=== PATIENT | male | born 1970 | race Caucasian/White ===

== ENCOUNTER 2016-06-16 12:17 | Emergency (ER) | payer MEDICAID ==
[2016-06-16 13:42] LABS: Hematocrit 45 % (42-52); Hemoglobin 15.1 g/dl (14.0-18.0); Mean Corpuscular HGB Conc 34 g/dl (31-36); Mean Corpuscular Hemoglobin 31 pg (27-31); Mean Corpuscular Volume 91 fL (80-94); Mean Platelet Volume 8 um3 (7.4-10.4); Red Blood Count 4.95 10^6/ul (4.0-5.4); Red Cell Distribution Width 15 % (10.5-15); White Blood Count 10.7 10^3/ul (3.5-10.8)
[2016-06-16 14:07] LABS: ALT 15 U/L (7-52); AST 17 U/L (13-39); Albumin 3.9 g/dL (3.2-5.2); Alkaline Phosphatase 77 U/L (34-104); Anion Gap 3 mmol/L (2-11); Blood Urea Nitrogen 9 mg/dL (6-24); CO2 Carbon Dioxide 30 mmol/L (22-32); Calcium 9.3 mg/dL (8.6-10.3); Chloride 104 mmol/L (101-111); EGFR African American 117.9 (>60); EGFR Non-African American 91.7 (>60); Globulin 2.9 g/dL (2-4); Glucose 100 mg/dL (70-100); Potassium 4.2 mmol/L (3.5-5.0); Sodium 137 mmol/L (133-145); Total Protein 6.8 g/dL (6.4-8.9)
[2016-06-16 14:16] LABS: Acetaminophen < 15 mcg/mL; Alcohol < 10 mg/dL (<10); Salicylate < 2.50 mg/dL (<30)
[2016-06-16 14:27] LABS: TSH (Thyroid Stimulating Horm) 1.31 mcIU/mL (0.34-5.60)
[2016-06-16 14:28] LABS: Urine Bacteria Absent (Absent); Urine Bilirubin Negative (Negative); Urine Glucose Negative (Negative); Urine Nitrite Negative (Negative)
[2016-06-16] MEDS: Acetaminophen TAB* 325 MG PO ONE ×2 (14:31→14:32)
[2016-06-16 14:38] LABS: Benzodiazepine Urine Screen None Detected (None Detect)
[2016-06-16] MEDS ORDERED: traMADol TAB* 50 MG PO ONE (18:19)
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
[2016-06-17] MEDS ORDERED: Zolpidem TAB* 5 MG PO PRN (08:55)
[2016-06-17] MEDS ORDERED: Sertraline* 100 MG TAB PO SCH (09:00)
[2016-06-17] MEDS ORDERED: busPIRone TAB* 5 MG PO SCH (09:00)
[2016-06-17 11:03] VITALS: BP 126/78
--- NOTE | 2016-08-23 18:07 | ED ---
Progress - Progress Note Progress Note: STABLE DISCHARGE HOME AFTER [facility] - Consult/PCP Time Called: 17:36 Course/Dx - Course Course Of Treatment: Pt is medically cleared for MHU Evaluation at 1422. - Diagnoses Provider Diagnoses: Depression
== END 2016-06-17 11:27 | disposition home or self-care (01) ==
LOC: ED 12:17
DX: F32.9 Major depressive disorder, single episode, unspecified (principal); T14.91 Suicide attempt; Z87.891 Personal history of nicotine dependence; M25.562 Pain in left knee
CPT/HCPCS: 36415; 80053; 80307; 80320; 80329; 81003; 81015; 84443; 85025; 87086; 99282; A9270-GY; G0480

== ENCOUNTER 2016-08-03 01:02 | Inpatient (IN) | payer MEDICAID ==
[2016-08-03] MEDS ORDERED: Morphine INJ* 4 MG/ML 1 ML SYRINGE IV ONE (01:13)
[2016-08-03] MEDS ORDERED: Morphine INJ* 4 MG/ML 1 ML SYRINGE ONE (01:13)
[2016-08-03 01:16] LABS: Hematocrit 48 % (42-52); Hemoglobin 15.9 g/dl (14.0-18.0); Mean Corpuscular HGB Conc 33 g/dl (31-36); Mean Corpuscular Hemoglobin 30 pg (27-31); Mean Corpuscular Volume 90 fL (80-94); Mean Platelet Volume 8 um3 (7.4-10.4); Red Blood Count 5.33 10^6/ul (4.0-5.4); Red Cell Distribution Width 14 % (10.5-15); White Blood Count 11.7 10^3/ul (3.5-10.8)
[2016-08-03] MEDS ORDERED: Ticagrelor* 90 MG TAB PO ONE (01:17)
[2016-08-03] MEDS ORDERED: Heparin for STEMI(*) 5,000 UNITS/ML 1 ML VIAL IV ONE (01:17)
[2016-08-03 01:18] LABS: Add Diff/Slide Review? Slide Review Added; Comments Flag Yes
[2016-08-03] MEDS ORDERED: fentaNYL* 50 MCG/ML 2 ML VIAL (100 MCG VIAL) ONE (01:18)
[2016-08-03] MEDS ORDERED: Midazolam* 1 MG/ML 5 ML VIAL (5 MG) ONE (01:18)
[2016-08-03] MEDS ORDERED: nitroGLYCERIN DRIP* 250 ML ONE (01:19)
[2016-08-03] MEDS ORDERED: Heparin(*) 1000 UNIT/ML 10 ML VIAL CATH LAB IV ONE (01:19)
[2016-08-03] MEDS ORDERED: Iohexol 350 (CONTRAST) 200 ML MDV IV ONE (01:19)
[2016-08-03] MEDS ORDERED: Heparin 2 UNITS/ML IVPREMIX* 3,000 ML IV ONE (01:19)
[2016-08-03] MEDS ORDERED: VERAPAMIL 2.5 MG/ML 4 ML VIAL ONE (01:19)
[2016-08-03] MEDS ORDERED: Lidocaine 1% INJ* 10 MG/ML 30 ML SDV ONE ×2 (01:19→08:09)
[2016-08-03 01:33] LABS: Albumin 4.4 g/dL (3.2-5.2); BUN/Creatinine Ratio 13.9 (8-20); Calcium 9.6 mg/dL (8.6-10.3); EGFR African American 103.2 (>60); EGFR Non-African American 80.2 (>60); Globulin 3.1 g/dL (2-4); Potassium 3.6 mmol/L (3.5-5.0); Total Bilirubin 0.2 mg/dL (0.2-1.0); Total Protein 7.5 g/dL (6.4-8.9)
[2016-08-03 01:35] LABS: Troponin I 0.01 ng/mL (<0.04)
[2016-08-03] MEDS ORDERED: Iodixanol* (CONTRAST) 320 MG/ML 100 ML SDV ONE (01:44)
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
[2016-08-03] MEDS ORDERED: Nitroglycerin TAB 0.4 MG* 0.4 MG TAB SL PRN (03:27)
[2016-08-03] MEDS ORDERED: NS 0.9% 1000 ML* 1,000 ML IV SCH (03:30)
[2016-08-03] MEDS ORDERED: Morphine INJ* 2 MG/ML 1 ML SYRINGE ONE (04:55)
[2016-08-03 05:26] LABS: Albumin 3.9 g/dL (3.2-5.2); BUN/Creatinine Ratio 15.7 (8-20); Calcium 8.8 mg/dL (8.6-10.3); EGFR African American 129.4 (>60); EGFR Non-African American 100.6 (>60); Globulin 2.8 g/dL (2-4); Potassium 3.7 mmol/L (3.5-5.0); Total Bilirubin 0.3 mg/dL (0.2-1.0); Total Protein 6.7 g/dL (6.4-8.9)
[2016-08-03 05:29] LABS: Troponin I 0.02 ng/mL (<0.04)
--- NOTE | 2016-08-03 07:40 | RAD ---
INDICATION: STEMI. COMPARISON: Comparison is made with a prior chest x-ray study from August 08, 2015. TECHNIQUE: A portable view of the chest was obtained. FINDINGS: The patient appears to be status post coronary artery bypass surgery. The heart is within normal limits in size. Mediastinal and hilar contours appear normal. The lungs are clear. No pleural effusion is seen. IMPRESSION: POSTSURGICAL CHANGES, NO EVIDENCE FOR ACUTE FINDING.
[2016-08-03] MEDS: Clopidogrel TAB* 75 MG PO SCH (09:13)
[2016-08-03] MEDS: Lisinopril TAB* 5 MG PO SCH (09:13)
[2016-08-03] MEDS: Sertraline* 100 MG TAB PO SCH (09:13)
[2016-08-03] MEDS: Metoprolol Succinate XL TAB* 25 MG PO SCH (09:13)
[2016-08-03] MEDS: busPIRone TAB* 5 MG PO SCH ×2 (09:13→21:05)
[2016-08-03 09:30] LABS: Troponin I 0.02 ng/mL (<0.04)
[2016-08-03] MEDS: Morphine INJ* 2 MG/ML 1 ML SYRINGE IV PRN ×2 (12:50→15:14)
--- NOTE | 2016-08-03 15:28 | HP ---
ADMISSION HISTORY AND PHYSICAL: DATE OF ADMISSION: 08/03/16 CHIEF COMPLAINT: The patient with severe chest and left upper shoulder discomfort with EKG interpreted as a STEMI by emergency room physicians and the EMS. HISTORY OF PRESENT ILLNESS: The patient is a pleasant 46-year-old gentleman with a significant prior cardiac history including having had coronary artery disease dating back to 2008 when he was found to have a 50% left main stenosis and occluded mid LAD and an occluded proximal circumflex with collateralization to the distal LAD and luminal irregularities in the right coronary artery. Reportedly, a bare metal stent was placed in the left anterior descending artery. I do not have anymore details about that. In 2009, he apparently underwent another catheterization that demonstrated a widely patent left anterior descending artery stent. There was no comment as to the circumflex disease. He then had a catheterization done at [facility] in [place], [place] on 08/14/12, apparently showing a right dominant system with a 50% distal left main, a normal LAD and 80% proximal circumflex and a 40% mid right lesion. He had an ejection fraction at that time of 45%. He had carried with him a reported history of left ventricular thrombus that apparently dated back to 2010, but they saw again as well in 2012. The patient was transferred to [facility] where he underwent bypass surgery on 09/09/[address] Pablito Bryant. He had an internal mammary artery to the left anterior descending artery, a saphenous vein to the obtuse marginal branch and a saphenous vein graft to the ramus branch. He was on warfarin for a while and then switched over to Xarelto for his clot in his left ventricle. He has also had problems apparently with a TIA in the past here in [place] for which Dr. Quinn saw him and he recommended an initial course of triple therapy with eventual decreasing him back to his Xarelto and clopidogrel and not aspirin. Last night, he apparently got into an extremely heated argument with his girlfriend who gives him his medications. It got to the point where he got so emotionally upset, he started developing chest discomfort. Eventually, they called the paramedics and a reported EKG demonstrated ST segment elevations in the precordial leads and as such, a STEMI alert was called. It should be noted that the patient's heart rate was tachycardic as well. When he presented to the ER, they repeated the EKG and administered 4000 units of heparin and 180 mg of Brilinta prior to my arrival. On my arrival, he was still having significant active chest discomfort and as such, the decision was made to proceed to the cardiovascular laboratory emergently. The risks and benefits were explained including the increased risk of bleeding given the fact that he was on Xarelto. They understood and wished to proceed. The STEMI alert team had already been called and as such, he was taken to the cardiovascular laboratory for further assessment. PAST MEDICAL HISTORY: Also includes retinopathy with him being legally blind, hyperlipidemia, hypertension, history of congestive heart failure, and left ventricular thrombus in the past. PAST SURGICAL HISTORY: Included right eye enucleation with prosthesis, an ORIF of the left lower leg in 2011, a cholecystectomy in 2007, bypass surgery as mentioned in 2014, and tonsillectomy. MEDICATIONS: He is on the Xarelto as mentioned. ALLERGIES: He does not have any dye allergy. FAMILY HISTORY: Included father with CAD in his 40s with a history of pericardial window. Mother has hypertension. He has siblings with no specific heart issues that he is aware of. SOCIAL HISTORY: He is . He has been having his medications distributed via his girlfriend. He is unemployed. He was a former smoker but not currently. He occasionally drinks alcohol and denies illicit drug usage. REVIEW OF SYSTEMS: Pertinent to proceeding emergently to the cardiovascular laboratory. He has no recent history of hematochezia, hematemesis, or hematuria that he is aware of. He has no history of renal insufficiency. PHYSICAL EXAMINATION GENERAL: When I saw him in the emergency room revealed a gentleman in distress , complaining of central chest discomfort radiating somewhat up toward the upper left shoulder area that he thinks may have some variation with inspiration. HEENT: Conjunctivae were pink. Sclerae were clear. Mouth revealed moist mucosa. NECK: Supple. I did not appreciate any increased JVP. Carotid had fair upstroke and volume. I did not appreciate definitive bruits. LUNGS: Clear with no active rales, rhonchi, or wheezes. HEART: Revealed no visible heaves. No palpable heaves or thrills. A regular rate, tachycardic in nature was noted without significant murmur. ABDOMEN: Soft, nontender without organomegaly. EXTREMITIES: Without clubbing, cyanosis, or blanche pitting edema. NEURO: The patient is legally blind. MUSCULOSKELETAL: He moves all extremities appropriate. PSYCHIATRIC: The patient appropriately anxious. LABORATORY DATA: Laboratory results are pending at the time of the patient proceeding to the cardiovascular laboratory. 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 At this point in time with ongoing symptoms, we will proceed with cardiac catheterization to try to define the left anterior descending artery system and the KAY graft. We will adjust management pending the results. As mentioned earlier, the risks and benefits were explained; he and his family understand them and we will proceed further. CC: Anabel Emery NP, [place], [place]* [id number] #: [id number] MTDD
[2016-08-03] MEDS ORDERED: Atorvastatin* 20 MG TAB PO SCH (21:00)
[2016-08-03] MEDS ORDERED: Amitriptyline TAB* 25 MG PO SCH (21:00)
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
[2016-08-04 06:03] LABS: Hematocrit 45 % (42-52); Hemoglobin 14.8 g/dl (14.0-18.0); Mean Corpuscular HGB Conc 33 g/dl (31-36); Mean Corpuscular Hemoglobin 30 pg (27-31); Mean Corpuscular Volume 91 fL (80-94); Mean Platelet Volume 8 um3 (7.4-10.4); Red Blood Count 4.99 10^6/ul (4.0-5.4); Red Cell Distribution Width 14 % (10.5-15); White Blood Count 11.7 10^3/ul (3.5-10.8)
[2016-08-04 06:21] LABS: Albumin 3.7 g/dL (3.2-5.2); BUN/Creatinine Ratio 11.4 (8-20); Calcium 9.1 mg/dL (8.6-10.3); EGFR Non-African American 94.1 (>60); Globulin 2.9 g/dL (2-4); HDL Cholesterol 33.2 mg/dL; Potassium 3.8 mmol/L (3.5-5.0); Total Bilirubin 0.3 mg/dL (0.2-1.0); Total Protein 6.6 g/dL (6.4-8.9)
[2016-08-04] MEDS: Sertraline* 100 MG TAB PO SCH (08:16)
[2016-08-04] MEDS: Clopidogrel TAB* 75 MG PO SCH (08:16)
[2016-08-04] MEDS: busPIRone TAB* 5 MG PO SCH (08:16)
[2016-08-04] MEDS: Metoprolol Succinate XL TAB* 25 MG PO SCH (08:16)
[2016-08-04] MEDS: Lisinopril TAB* 5 MG PO SCH (08:16)
--- NOTE | 2016-08-04 12:39 | ECHO ---
Patient: HOLLIS ONTIVEROS [facility] Rec#: [id number] : 1970 Date: 08/04/2016 Age: 46y Height: 177.8 cm / 70.0 in Weight: 86.18 kg / 189.9 lbs Sex: M BSA: 2.04 Admit Date#: 08/03/2016 Referring: Guido Real MD Reading: Guido Real MD Snowblower Mechanic: Gabby Lu Snowblower Mechanic: Aidee Ryan HERMINIA CC: Isaac Gonzales MD Transthoracic Echocardiogram Findings History: CAD,s/p CABG 2012,HLD,retinopathy,HTN,CHF, LV thrombus,recent STEMI with PCI. Left Ventricle: The left ventricular chamber size is normal. There is a focal wall motion abnormality present.There is akinesis of the apical, most distal anterior wall,and most distal inferior wall. An apical thrmobus is again noted. There is mild to moderately decreased left ventricular systolic function. The visually estimated LVEF is approximately 40 %. There is no consistent Doppler evidence of clinically significant diastolic dysfunction. A thrombus is visualized in the left ventricular apex. Left Atrium: The left atrium is slightly dilated. Right Ventricle: The right ventricular cavity size is normal. The right ventricular global systolic function is mildly to moderately reduced. Right Atrium: The right atrial cavity size is normal. Aortic Valve: The aortic valve is trileaflet. There is no evidence of aortic regurgitation. There is no evidence of aortic stenosis. Mitral Valve: The mitral valve leaflets appear normal. There is a trace of mitral regurgitation. There is no evidence of mitral stenosis. Tricuspid Valve: The tricuspid valve leaflets are normal. There is a physiologic tricuspid regurgitation. Unable to estimate the right ventricular systolic pressure. Pulmonic Valve: The pulmonic valve appears normal. There is no evidence of pulmonic regurgitation. There is no pulmonic stenosis. Pericardium: The pericardium appears normal. Aorta: There is no dilatation of the ascending aorta. There is no dilatation of the aortic arch. There is no dilation of the aortic root. Pulmonary Artery: The main pulmonary artery appears normal. Venous: The inferior vena cava appears normal in size. There is a greater than 50% respiratory change in the inferior vena cava dimension. Conclusions There is mild to moderately decreased left ventricular systolic function. The visually estimated LVEF is approximately 40 %. There is a focal wall motion abnormality present.There is akinesis of the apical, most distal anterior wall,and most distal inferior wall. A thrombus is visualized in the left ventricular apex measuring 1.5x1.4cm . The left atrium is slightly dilated. There is a trace of mitral regurgitation. There is a physiologic tricuspid regurgitation. Compared to report of study from 06/23/2016 the overall LV systolic function appears mildly improved. The thrombus is again noted with minimal change. Measurements Name Value Normal Range RVIDd (AP) 2D 2.5 cm (0.9 - 2.6) RVDdMajor (2D) 2.8 cm (2.2 - 4.4) RAd ISD 4CH 4 cm (3.4 - 4.9) RA (A4C)W 3 cm (2.9 - 4.6) IVSd (2D) 0.8 cm (0.6 - 1) LVPWd (2D) 0.8 cm (0.6 - 1) LVIDd (2D) 5.2 cm (3.6 - 5.4) LVIDs (2D) 4 cm - LV FS (2D) 23 % (25 - 45) Aortic Annulus 1.9 cm (1.4 - 2.6) Ao root diameter (2D) 2.5 cm (2.1 - 3.5) Ascending Ao 2.4 cm (2.1 - 3.4) Aortic arch 2.8 cm (1.8 - 3.4) Descending Ao 0.7 cm - LA dimension (AP) 2D 3.9 cm (2.3 - 3.8) LAd ISD 4CH 5.2 cm (2.9 - 5.3) LA ISD 4CH W 4.2 cm (2.5 - 4.5) Name Value Normal Range LA ESV SP 4CH (A/L) 52 ml - LA ESV SP 2CH (A/L) 46 ml - LA ESV BP (A/L) 52 ml - LA ESV BP (A/L) index 25.41 ml/m2 - LA ESV SP 4CH (MOD) 46 ml - LA ESV SP 2CH (MOD) 45 ml - Name Value Normal Range MV E-wave Vmax 0.9 m/sec - MV deceleration time 134 msec - MV A-wave Vmax 0.6 m/sec - MV E:A ratio 1.35 ratio - LV septal e' Vmax 0.06 m/sec - LV lateral e' Vmax 0.1 m/sec - LV E:e' septal ratio 15 ratio - LV E:e' lateral ratio 9 ratio - Name Value Normal Range AV Vmax 1.1 m/sec - AV VTI 21.5 cm - AV peak gradient 5.14 mmHg - AV mean gradient 2.21 mmHg - LVOT Vmax 0.8 m/sec - LVOT VTI 17.6 cm - LVOT peak gradient 2.41 mmHg - LVOT mean gradient 1.2 mmHg - Name Value Normal Range IVC diameter 1.8 cm - Name Value Normal Range PV Vmax 0.9 m/sec - PV peak gradient 3.12 mmHg -
--- NOTE | 2016-08-04 13:52 | PN ---
Subjective Date of Service: 08/04/16 Interval History: Patient reports no further episodes of CP. He denies any new, acute symptoms. Reports that his anxiety symptoms are well controlled. He plans to live with his mother following discharge from the hospital. Objective Active Medications: Amitriptyline HCl (Elavil Tab*) 25 mg PO BEDTIME [facility] Last Admin: 08/03/16 21:05 Dose: 25 mg Atorvastatin Calcium (Lipitor*) 20 mg PO BEDTIME [facility] Last Admin: 08/03/16 21:05 Dose: 20 mg Buspirone HCl (Buspar Tab*) 5 mg PO BID [facility] Last Admin: 08/04/16 08:16 Dose: 5 mg Clopidogrel Bisulfate (Plavix Tab*) 75 mg PO DAILY [facility] Last Admin: 08/04/16 08:16 Dose: 75 mg Lisinopril (Prinivil Tab*) 2.5 mg PO DAILY [facility] Last Admin: 08/04/16 08:16 Dose: 2.5 mg Metoprolol Succinate (Toprol Xl Tab*) 25 mg PO DAILY [facility] Last Admin: 08/04/16 08:16 Dose: 25 mg Nitroglycerin (Nitroglycerin Tab 0.4 Mg*) 0.4 mg SL Q5M PRN PRN Reason: ANGINA Sertraline HCl (Zoloft*) 100 mg PO DAILY [facility] Last Admin: 08/04/16 08:16 Dose: 100 mg Vital Signs: Temp Pulse Resp BP Pulse Ox 98.1 F 66 15 116/61 97 08/04/16 12:00 08/04/16 13:00 08/04/16 13:00 08/04/16 13:00 08/04/16 13:00 Appearance: Well appearing, in NAD. Sitting in a chair at bedside. Full exam was not completed today Result Diagrams: 08/04/16 05:35 08/04/16 05:35 Additional Lab and Data: . Microbiology and Other Data: Microbiology 08/03/16 03:30 Nasal Screen MRSA (PCR)(LEW) - Final Nasal Mrsa Negative Diagnostic Imaging: Echo - LVEF 40% with apical/inferior wall hypokinesis with ventricular thrombus present, unchanged from prior Assess/Plan/Problems-Billing Assessment: This is a 46 yo gentleman with significant coronary history as well as anxiety and acquired blindness who presented with complaints of severe CP. Interventional cardiology is managing and requested hospitalist consultation. - Patient Problems (1) Chest pain Comment: No evidence of ACS Likely due to severe emotional stress Management per cardiology (2) CAD (coronary artery disease) Comment: No evidence of ACS Cont med management (3) Anxiety Comment: Symptoms appear well controlled with current medications Recommend continuing Buspar and Sertraline (4) Left ventricular thrombus Comment: Appears unchanged on echo Anticoagulated with Xarelto Pending cardiac MRI (5) Ischemic cardiomyopathy Comment: Without acute exacerbation LVEF 40% (6) Blindness Comment: s/p bilateral ocular extraction for infectious reasons Status and Disposition: Discharge per interventional cardiology. Rx provided for MRI pretreatment. Ativan sent to requested pharmacy
[2016-08-04 16:27] VITALS: BP 135/100
--- NOTE | 2016-08-05 00:07 | DS ---
DISCHARGE SUMMARY: DATE OF ADMISSION: 08/03/16 DATE OF DISCHARGE: 08/04/16 FINAL DIAGNOSIS: Atypical chest pain. SECONDARY DIAGNOSES: 1. Coronary artery disease. 2. Ischemic cardiomyopathy with left apical thrombus. 3. Hyperlipidemia. 4. Legally blind. DISCHARGE MEDICATIONS: Include: 1. Amitriptyline 25 mg at bedtime. 2. Atorvastatin 20 mg a day. 3. BuSpar 5 mg twice a day. 4. Clopidogrel 75 mg a day. 5. Lisinopril 2.5 mg a day. 6. Metoprolol succinate 25 mg a day. 7. Sertraline 100 mg p.o. daily. 8. He is to restart his Xarelto that had been held after his cardiac catheterization at 20 mg a day late tonight and go back on it tomorrow at 20 mg a day at 5 p.m., his regular dosing. 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 An abnormal EKG was noted by the emergency room physician and a STEMI alert was called. Because of the patient's history of significant coronary artery disease with a prior history of stents placed in the LAD and the circumflex and subsequent bypass because of distal left main disease (50%) with a KAY graft to a LAD and a vein graft to a trifurcation marginal branch and a vein graft to a low lying small obtuse marginal branch, the patient was taken emergently to the cardiovascular laboratory. In the cardiovascular laboratory, the 2 vein grafts were found to be totally occluded. The KAY graft to the LAD was widely patent. The left main appear to have approximately 50% to 55% obstruction. The circumflex had a trifurcation marginal branch with a widely patent stent and the continuation of the circumflex had diffuse disease proximally with multiple significant stenosis leading to a very small caliber (less than 2 mm) vessel with diffuse disease in its midportion with up to 85% to 90% stenosis. This was a vessel that did not appear to be able to be treated interventionally with any appropriate size stent. Intravascular ultrasound was then performed to the left main and the minimal luminal area was noted to be 5.47 to the distal left main. The percentage stenosis by area came out to be 68%. Of note, despite all of his symptoms for a significant time period, his cardiac enzymes were completely negative with troponin values of 0.01, 0.02 and 0.02. His CPK and MBs were normal as well. He was hospitalized overnight and was up and about walking without significant problems. He was scheduled to get an MRI performed of his heart to look at the apical thrombus as an outpatient at [facility] on 08/05/16. Unfortunately, his paperwork was not filled out in time to have a transportation through Medicaid. [employer] worked on and was able to provide us with a new date for the MRI and will be getting the paperwork and in time so that he will have it done. It will be scheduled on 08/26/16 at 11:30 a.m. at [facility]. I will be reviewing that and await the decision to decide whether or not anticoagulation can be stopped as he has been on anticoagulation for as long as back in 2010. Back in 2014 in January, he was noted to have a potential CVA and at that point, the recommendations were to maintain the anticoagulation and the clopidogrel and even add aspirin for a 90-day time, after which it was converted back to clopidogrel alone. During the course of this hospitalization, he did have a repeat echocardiogram, which showed his EF to be if anything slightly better at approximately 40%. Focal wall motion abnormality was still seen with akinesis of the apical most distal anterior and most distal inferior wall and a thrombus was noted measuring at 1.5 x 1.4 cm which appeared to be perhaps slightly less than the more recent echo. He had no significant valvular disease. PHYSICAL EXAMINATION: On the day of discharge revealed, vital signs: Blood pressure 98/62, temperature 97.9, pulse 72, O2 saturation 98% on room air. Neck was supple with no increased JVP. Carotids had good upstroke and volume without bruits. Mouth moist mucosa. Lungs revealed no accessory muscle usage. There was good excursion. Lungs were clear A and P. Heart revealed no visible heaves, no palpable heaves or thrills. Normal S1 and S2 with no S3, S4 or gallop. No significant systolic or diastolic murmur. Extremities without edema. The right groin area was well healed with no hematoma. Neuro: The patient is legally blind. Musculoskeletal: The patient walks with a fairly normal gait. Psychiatric: The patient with normal affect. LABORATORY DATA: Laboratory results from today revealed sodium 137, potassium 3.8, chloride 102, bicarb 31, BUN and creatinine 10 and 0.8. Hemoglobin and hematocrit of 14.8 and 45. White count 11,700, platelet count 219,000. EKG today revealed sinus rhythm. Heart rate 68. There was nonspecific intraventricular conduction delay seen. Of note, there was still persistent mild ST segment elevation V1 through V3 with biphasic T-wave in V3. T-Wave inversion was seen in the V4 through V6, I and aVL with small Q-waves and I and aVL and preserved R-waves in I, aVL. He will be maintained on his home medications, and will restart xarelto as above. I will see him back in follow up for a wound check on 08/18/2016. The patient will be followed up also after his MRI for further recommendations. CC: Isaac Gonzales MD, [facility] * [id number]/CPS #: [id number] MTDD
--- NOTE | 2016-08-05 01:08 | CATH ---
CARDIAC CATHETERIZATION REPORT: DATE OF PROCEDURE: 08/03/16 REASON FOR PROCEDURE: The patient with severe left chest discomfort with abnormal EKG with history of significant coronary artery disease, assess for the presence of acute coronary syndrome and possible STEMI to the anterior wall. PROCEDURE: Coronary arteriography, vein graft arteriography to trifurcation marginal branch, vein graft arteriography to low lying obtuse marginal branch, KAY graft to LAD, intravascular ultrasound of left anterior descending artery back into left main to assess distal left main stenosis. DESCRIPTION OF PROCEDURE: The patient was interviewed and examined in the emergency room where the risks and benefits were explained. He understood them and wished to proceed. He was brought to the cardiovascular laboratory where a formal time-out was performed. He was prepped and draped in a sterile fashion. The right groin area was anesthetized with 1% lidocaine. The right femoral artery was cannulated using an anterior wall only approach. A Merit 6.5-Azerbaijani sheath was placed. Coronary arteriography was performed using a 5-Azerbaijani 4- Savage left coronary catheter and a 5-Azerbaijani 4-Savage right coronary catheter. The right coronary artery catheter was utilized to cannulate the 2 vein grafts. A 5-Azerbaijani KAY graft was utilized to cannulate the KAY graft. Following this, the decision was made to assess the distal left main artery by intravascular ultrasound. An ACT was checked and was found to be 208. Additional heparin therapy was given, 2000 units. Guiding views were obtained utilizing a 6-Azerbaijani FL-4 curve guide catheter. An CureSquare All Star guide wire was advanced on the left anterior descending artery and an OptiCross IVUS catheter by [employer] was utilized to image the proximal LAD back into the left main. Following this, the catheters were removed and the sheath was sutured in place after an injection was made into the right femoral artery to assess the eligibility to utilize closure device. This closure device will be deployed in the intensive care unit at the appropriate amount of time to let the heparin wear off as the patient also has had the effect of Xarelto on board which she was on as an outpatient, but had not taken any since the night before last. The total contrast used was 110 cc of Omnipaque dye. The radiation exposure included 9.5 minutes of fluoro time. The air kerma radiation was 625 mGy. The DAPA radiation was 3857 microgray per meter squared. RESULTS: CORONARY ARTERIOGRAPHY: A. Left coronary artery: 1. Left main - the distal left main had what appeared to be a 55-60 % diameter stenosis in its worst view. Several other views, it appeared less significant. 2. Left anterior descending artery - left anterior descending artery had a proximal stent noted with mild in-stent restenosis. The rest of the left anterior descending artery had no significant lesions seen throughout the course of the vessel. It gave a first and second diagonal branch followed by smaller distal diagonal branches. There was no significant disease seen in the diagonal branches. 3. Circumflex artery - a nondominant vessel supplying a high trifurcation marginal branch, which had a stent in place. Just past the point of the stent placement, appeared to be the probable site of attachment of a prior vein graft. There was no retrograde filling into that vein graft. There was slight kinking in that area. The rest of the trifurcation marginal branch had no significant narrowing seen. The continuation of the circumflex in its proximal portion had diffuse disease for a long segment with multiple lesions that appeared to me as much as 85% to possibly 90%. This supplied a small caliber distal obtuse marginal branch, the caliber of which appeared to be less than 2 mm. In the midsegment of this area was a mild area that appeared to be tented upward, probably the site of prior vein graft with no backflow to it with a long diffusely diseased segment on the distal side of it with high-grade stenosis noted. B. Right coronary artery - a dominant vessel supplying an acute marginal branch, a moderate-sized acute mid obtuse marginal branch with supply to the mid inferior wall as well as small caliber posterior descending artery and posterior LV branch which supplied the more proximal inferior wall. There was mild disease seen within the vessel, but no critical stenosis noted. VEIN GRAFT TO TRIFURCATION MARGINAL BRANCH: Totally occluded at its origin. VEIN GRAFT TO LOW-LYING OBTUSE MARGINAL BRANCH: Totally occluded at its proximal portion. KAY GRAFT TO LAD: Widely patent with anastomosis to mid to distal portion of the LAD. There was no significant stenosis seen in the KAY graft and there is competitive flow in the left anterior descending artery. INTRAVASCULAR ULTRASOUND ASSESSMENT OF LEFT MAIN LESION: A. Reference left main size showed a lumen of 17.44 sq. mm. There was mild plaquing in this area of 20% to 25%. B. Most significant area of luminal narrowing in the distal left main revealed an area of 5.46 sq. mm with orthogonal diameters of an oval-shaped area measuring 2.19 mm and 3.09 mm. C. The calculated percent stenosis by area was approximately 70% stenosis by cross-sectional area. The actual cross-sectional area of 5.46 is suggestive of a significant left main lesion being less than 6 sq. mm guideline cutoff for significance of left main area. OVERALL ASSESSMENT: Significant left main lesion by intravascular ultrasound; however, just under the cutoff for minimal luminal area to be declared significant. Angiography suggests a 55% diameter stenosis, which would agree with these findings. The circumflex after a good size trifurcation marginal branch has diffuse disease in its proximal and mid area leading to a thin, low-lying obtuse marginal branch which was of too smaller caliber for proceeding with intervention by these images. Given the fact that there would be difficulty attempting to turn in abrupt 90-degree angle to do intervention into the distal circumflex and provide stenting to this area especially in the face of what appears to be significant left main disease, I would not favor attempting to intervene on the circumflex, but treating with medicine at this point in time. 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 Further management will be made pending the course of the hospitalization. CC: Dr. Isaac Gonzales* [id number]/[facility] #: [id number] [facility] NETWORK[facility]ena
== END 2016-08-04 14:30 | disposition home or self-care (01) | DRG 192 ==
LOC: ED 01:02 → ICU 01:40
PROVIDERS: ADMIT Internal Medicine Cardiovascular Disease; ATTEND Internal Medicine Cardiovascular Disease
PROC: B2111ZZ Fluoroscopy of Multiple Coronary Arteries using Low Osmolar Contrast (ICD-10-PCS; 2016-08-03)
PROC: B2181ZZ Fluoroscopy of Left Internal Mammary Bypass Graft using Low Osmolar Contrast (ICD-10-PCS; 2016-08-03)
PROC: B241ZZ3 Ultrasonography of Multiple Coronary Arteries, Intravascular (ICD-10-PCS; 2016-08-03)
PROC: B2131ZZ Fluoroscopy of Multiple Coronary Artery Bypass Grafts using Low Osmolar Contrast (ICD-10-PCS; principal; 2016-08-03 01:30)
DX: R07.89 Other chest pain (principal); T82.855A Stenosis of coronary artery stent, initial encounter; I11.0 Hypertensive heart disease with heart failure; I50.9 Heart failure, unspecified; I25.810 Atherosclerosis of coronary artery bypass graft(s) without angina pectoris; I25.5 Ischemic cardiomyopathy; H54.8 Legal blindness, as defined in USA; E78.5 Hyperlipidemia, unspecified; I51.3 Intracardiac thrombosis, not elsewhere classified; K21.9 Gastro-esophageal reflux disease without esophagitis; M19.90 Unspecified osteoarthritis, unspecified site; G43.909 Migraine, unspecified, not intractable, without status migrainosus; I25.10 Atherosclerotic heart disease of native coronary artery without angina pectoris; Y71.3 Surgical instruments, materials and cardiovascular devices (including sutures) associated with adverse incidents; F32.9 Major depressive disorder, single episode, unspecified; F41.0 Panic disorder [episodic paroxysmal anxiety]; Z82.49 Family history of ischemic heart disease and other diseases of the circulatory system; Z87.891 Personal history of nicotine dependence; Z79.02 Long term (current) use of antithrombotics/antiplatelets; Z86.73 Personal history of transient ischemic attack (TIA), and cerebral infarction without residual deficits; Z88.8 Allergy status to other drugs, medicaments and biological substances
CPT/HCPCS: 36415; 71010; 80053; 80061; 82550; 82553; 83605; 83721; 83880; 84484; 85025; 85379; 85610; 85730; 87641; 93005; 93306; A9270-GY; C1753; C1760; C1769; C1887; J1644; J2001; J2250; J2270; J3010

== ENCOUNTER 2016-08-05 22:58 | Observation (INO) | payer MEDICAID ==
[2016-08-05] MEDS ORDERED: Ondansetron INJ* 2 MG/ML VIAL IV ONE (23:28)
[2016-08-05] MEDS ORDERED: Morphine INJ* 4 MG/ML 1 ML SYRINGE IV ONE (23:28)
[2016-08-05] MEDS ORDERED: NS 0.9% 1000 ML* 1,000 ML IV SCH (23:30)
[2016-08-06 00:26] LABS: BUN/Creatinine Ratio 14.9 (8-20); C Reactive Protein 15.8 mg/L (< 5.00); Calcium 9.4 mg/dL (8.6-10.3); EGFR African American 122.6 (>60); EGFR Non-African American 95.3 (>60); Globulin 3.2 g/dL (2-4); Potassium 3.9 mmol/L (3.5-5.0); Total Bilirubin 0.3 mg/dL (0.2-1.0); Total Protein 7.2 g/dL (6.4-8.9)
[2016-08-06 00:36] LABS: Hematocrit 46 % (42-52); Hemoglobin 15.2 g/dl (14.0-18.0); Mean Corpuscular HGB Conc 33 g/dl (31-36); Mean Corpuscular Hemoglobin 30 pg (27-31); Mean Corpuscular Volume 91 fL (80-94); Mean Platelet Volume 8 um3 (7.4-10.4); Red Blood Count 5.03 10^6/ul (4.0-5.4); Red Cell Distribution Width 14 % (10.5-15); White Blood Count 14.7 10^3/ul (3.5-10.8)
[2016-08-06] MEDS ORDERED: Morphine INJ* 4 MG/ML 1 ML SYRINGE IV ONE (01:11)
[2016-08-06] MEDS ORDERED: NS 0.9% 1000 ML* 1,000 ML IV SCH (01:30)
[2016-08-06] MEDS ORDERED: ceFAZolin 1 GM in Dextrose (*) 1 GM/50 ML BAG IVPB SCH ×2 (02:00→10:30)
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
[2016-08-06] MEDS ORDERED: LORazepam TAB(*) 1 MG PO ONE (04:00)
[2016-08-06] MEDS ORDERED: Morphine INJ* 2 MG/ML 1 ML SYRINGE ONE ×2 (05:34)
[2016-08-06] MEDS ORDERED: Morphine INJ* 2 MG/ML 1 ML SYRINGE IV ONE (06:00)
[2016-08-06 07:44] LABS: Hematocrit 42 % (42-52); Hemoglobin 14.1 g/dl (14.0-18.0); Mean Corpuscular HGB Conc 34 g/dl (31-36); Mean Corpuscular Hemoglobin 30 pg (27-31); Mean Corpuscular Volume 91 fL (80-94); Mean Platelet Volume 8 um3 (7.4-10.4); Red Blood Count 4.66 10^6/ul (4.0-5.4); Red Cell Distribution Width 14 % (10.5-15); White Blood Count 11.8 10^3/ul (3.5-10.8)
--- NOTE | 2016-08-06 07:44 | RAD ---
INDICATION: Status post cardiac catheterization procedure August 03, 2016 pain at the right femoral access site. COMPARISON: There are no prior studies available for comparison. TECHNIQUE: Multiple real-time, color flow and Doppler tracings of the right inguinal region were obtained. FINDINGS: There is normal triphasic flow within the proximal right common femoral, superficial femoral and profunda femoral arteries. No pseudoaneurysm is seen. No collection or hematoma is noted. IMPRESSION: NO EVIDENCE FOR PSEUDOANEURYSM.
[2016-08-06 08:01] LABS: BUN/Creatinine Ratio 13.8 (8-20); C Reactive Protein 14.34 mg/L (< 5.00); Calcium 8.3 mg/dL (8.6-10.3); EGFR African American 122.6 (>60); EGFR Non-African American 95.3 (>60); Potassium 3.2 mmol/L (3.5-5.0)
[2016-08-06 08:03] VITALS: BP 115/63
[2016-08-06] MEDS ORDERED: oxyCODONE TAB* 5 MG TAB PO PRN (08:03)
[2016-08-06] MEDS ORDERED: oxyCODONE TAB* 5 MG TAB ONE ×2 (08:08)
[2016-08-06] MEDS ORDERED: Clopidogrel TAB* 75 MG PO SCH (09:00)
[2016-08-06] MEDS ORDERED: Metoprolol Succinate XL TAB* 25 MG PO SCH (09:00)
[2016-08-06] MEDS ORDERED: busPIRone TAB* 5 MG PO SCH (09:00)
[2016-08-06] MEDS ORDERED: Sertraline* 100 MG TAB PO SCH (09:00)
[2016-08-06] MEDS ORDERED: Lisinopril TAB* 5 MG PO SCH (09:00)
--- NOTE | 2016-08-06 09:37 | HP ---
HISTORY AND PHYSICAL: DATE OF ADMISSION: 08/06/16 CHIEF COMPLAINT: Right groin pain. HISTORY OF PRESENT ILLNESS: The patient is a 46-year-old gentleman who had a cardiac cath just the day before yesterday, and then this morning he woke up, had significant pain in the area. Said he couldn't walk 4 to 5 steps to go to the bathroom without it being very painful. It started at about 5 p.m. His mother felt it was more swollen than unusual, so took him to the ER. It is now 5/10 in severity, but it was 8-9/10 in severity earlier. It did not feel warm, and was not red. In the ED, the patient was evaluated and the ultrasound showed no evidence of a pseudoaneurysm. PAST MEDICAL HISTORY: The patient has a past medical history significant for retinopathy making him blind, hyperlipidemia, hypertension, congestive heart failure, and coronary artery disease, status post CABG. PAST SURGICAL HISTORY: CABG, cholecystectomy, tonsillectomy, multiple ocular procedures. CURRENT MEDICATIONS: 1. Lorazepam 1 mg daily. 2. Plavix 75 mg daily. 3. Amitriptyline 25 mg at bedtime. 4. BuSpar 5 mg twice daily. 5. Simvastatin 40 mg at bedtime. 6. Zoloft 100 mg daily. 7. Xarelto 20 mg daily. 8. Metoprolol succinate 25 mg daily. 9. Lisinopril 2.5 mg daily. ALLERGIES: Allergy/adverse reaction to WELLBUTRIN. FAMILY HISTORY: Significant for father who had heart disease at age 40. SOCIAL HISTORY: Ex-tobacco, 20-pack year history, rare alcohol, no recreational drug use, unemployed, single. REVIEW OF SYSTEMS: A 14-point review of systems is completed with the patient. All pertinent positives and negatives are in the history of present illness, otherwise it is negative. PHYSICAL EXAMINATION GENERAL: A pleasant gentleman lying in bed, in no acute distress. VITAL SIGNS: Temperature 97.4 degrees, heart rate 76 beats per minute, respiratory rate 18 breaths per minute, pulse ox 100% on room air, blood pressure 132/66. HEENT: Normocephalic and atraumatic. Pupils are equal, round and reactive to light. Moist mucous membranes. NECK: Supple. No JVD, bruits, palpable thyroid or lymphadenopathy. CHEST: Clear to auscultation and percussion bilaterally. CARDIOVASCULAR: S1, S2 appreciated. ABDOMEN: Positive bowel sounds in all 4 quadrants. Soft, nontender, and nondistended. EXTREMITIES: No cyanosis, clubbing, or edema. His groin is not red. It is not swollen. It is tender. It is not warm. NEUROLOGIC: Alert and oriented x3. Moves all extremities. SKIN: No rashes or abnormalities. LABORATORY DATA: White count 14.7, hemoglobin 15.2, hematocrit 46, platelets 235. [id number], potassium 2.9, chloride 101, CO2 27, BUN 15, creatinine 0.87, glucose 87, INR 1.26. Groin Doppler ultrasound shows no evidence of pseudoaneurysm. ASSESSMENT AND PLAN: 1. Right groin pain: Nut Sheller Machine Operator who performed procedure is concerned about possible infection. We will place the patient on Ancef 1 g IV q. 8 hours. Admit under observation. I anticipate the patient will get better quite quickly , and be able to be discharged, perhaps on po antibiotics if necessary. 2. Coronary artery disease. Stable, continue current regimen. 3. FEN. Regular diet. 4. DVT prophylaxis. He is on Xarelto. 5. The patient is a full code. TIME SPENT: Over 75 minutes were spent on this H and P, more than 40 minutes of which were spent in direct [id number] contact with the patient in evaluation, physical exam, counseling, and coordination of care. CC: Dr. Guido Real; Dr. Isaac Gonzales [id number]/[facility] #: [id number] MTDD
--- NOTE | 2016-08-06 12:38 | DS ---
DISCHARGE SUMMARY: DATE OF ADMISSION: 08/06/16 DATE OF DISCHARGE: 08/06/16 PRIMARY CARE PROVIDER: Dr. Gonzales. DOCUMENT REVIEW SPECIALIST: Dr. Real. DISCHARGING PROVIDER: DELMY Reed SUPERVISING PHYSICIAN: Edith Daniel DO. * (DICTATED BY DELMY REED) PRIMARY DISCHARGE DIAGNOSIS: Right groin pain, status post cardiac catheterization without evidence of infection or pseudoaneurysm. SECONDARY DISCHARGE DIAGNOSES: 1. Coronary artery disease without evidence of acte coronary syndrome. 2. Chronic ventricular thrombus anticoagulated with Xarelto. 3. Anxiety. 4. Acquired blindness. 5. Hypertension. 6. Hyperlipidemia. 7. Ischemic cardiomyopathy. DISCHARGE MEDICATIONS: 1. Amitriptyline 25 mg p.o. at bedtime. 2. Plavix 75 mg p.o. daily. 3. Lisinopril 2.5 mg p.o. daily. 4. Metoprolol succinate 25 mg p.o. daily. 5. Xarelto 20 mg p.o. daily. 6. Sertraline 100 mg p.o. daily. 7. Simvastatin 40 mg p.o. at bedtime. 8. BuSpar 5 mg p.o. twice daily. 9. Oxycodone 10 mg p.o. q.6 hours as needed for pain. HOSPITAL IMAGING: Groin Doppler ultrasound is negative for pseudoaneurysm. HOSPITAL COURSE: This is a 46-year-old gentleman with extensive medical history including coronary artery disease, blindness, ischemic cardiomyopathy, hypertension, hyperlipidemia, and anxiety who was recently admitted for complaints of chest pain. There was concern for non-ST elevation MO and the patient underwent cardiac catheterization with access at the right femoral artery by Dr. Real on 08/03/16. The patient was discharged from the hospital on 08/04/16. Cardiac catheterization was benign. The patient engaged in some light activity yesterday. He states that he was following directions per post- catheterization protocol. He walked less than a city block carrying a bag less than 5 pounds and later in the day began having severe right groin pain for which he returned to the emergency department for evaluation. Upon reaching the emergency department, initial labs showed moderate leukocytosis with a white blood cell count of 14,700. Last labs from the day prior showed a white blood cell count of 11,700. Chemistries are otherwise unremarkable. CRP mildly elevated at 15.8. Ultrasound was completed of the right groin, which showed no evidence of pseudoaneurysm. The patient was subsequently admitted to observation status due to the leukocytosis and concern for possible infection at his catheterization access site. Overnight, the patient had some mild to moderate pain which resolved with opioid analgesics. Evaluation of the catheterization site appears to be benign. There is no surrounding erythema, some mild induration and ecchymosis and very minimal tenderness to palpation at the time of discharge. I contacted on-call home restoration service supervisor who did not recommend any additional intervention. DISPOSITION: The patient is being discharged to home without changes to his home medications with the exception of p.r.n. oxycodone for pain relief, with instructions to apply cold packs for additional pain relief. He is instructed to keep his followup appointment with Dr. Real as previously scheduled. No concern for infection or pseudoaneurysm. DELMY REED CC: Dr. Gonzales; Dr. Real* [id number]/[facility] #: [id number] MTDD
[2016-08-06] MEDS ORDERED: Rivaroxaban TAB(*) 20 MG TAB PO SCH (17:00)
[2016-08-06] MEDS ORDERED: Atorvastatin* 20 MG TAB PO SCH (21:00)
[2016-08-06] MEDS ORDERED: Amitriptyline TAB* 25 MG PO SCH (21:00)
== END 2016-08-06 13:10 | disposition home or self-care (01) ==
LOC: ED 22:58 → MED 08-06 03:40
PROVIDERS: ADMIT Internal Medicine; ATTEND Hospitalist
DX: R10.30 Lower abdominal pain, unspecified (principal); Z98.890 Other specified postprocedural states; I25.119 Atherosclerotic heart disease of native coronary artery with unspecified angina pectoris; I10 Essential (primary) hypertension; Z86.718 Personal history of other venous thrombosis and embolism; Z79.01 Long term (current) use of anticoagulants; F41.9 Anxiety disorder, unspecified; E78.5 Hyperlipidemia, unspecified; I42.9 Cardiomyopathy, unspecified; I25.5 Ischemic cardiomyopathy; M79.604 Pain in right leg; Z79.899 Other long term (current) drug therapy; Z87.891 Personal history of nicotine dependence; Z88.8 Allergy status to other drugs, medicaments and biological substances
CPT/HCPCS: 36415; 80048; 80053; 84145; 85025; 85610; 85730; 86140; 87040; 96365; 96375; 96376; 99285; A9270-GY; G0378; J0690; J2270; J2405

== ENCOUNTER 2016-12-04 13:41 | Emergency (ER) | payer MEDICAID ==
[2016-12-04 14:04] VITALS: BP 125/78
[2016-12-04] MEDS ORDERED: HYDROcodone/ACETAMIN 5-325 MG* 1 TAB PO ONE (15:36)
--- NOTE | 2016-12-04 16:08 | RAD ---
Indication: Sharp anterior and medial tibia and fibula pain for one day. Previous surgery and ORIF. Comparison: March 04, 2016 radiographs. Technique: AP and lateral views LEFT lower leg. Report: No evidence for loosening of the medial or lateral cortical plates and fixation screws at the tibial plateau through proximal metaphysis. Stable appearance of the hardware compared with the 2016 exam. No fracture or malalignment. Unremarkable soft tissue contours. Soft tissue planes surgical clips at the proximal medial aspect. IMPRESSION: Stable radiographic appearance of the LEFT lower leg compared with the March 04, 2016 exam.
--- NOTE | 2016-12-04 16:16 | UC ---
Lower Extremity/Ankle HPI - HPI Summary HPI Summary: Left knee pain patient reports this to be above the location of hardware in his leg from a previous accident, no joint swelling fevers, chills or rashes, no new injury - History of Current Complaint Chief Complaint: UCLowerExtremity Stated Complaint: LEG PAIN Time Seen by Provider: 12/04/16 15:22 Hx Obtained From: Patient Onset/Duration: Gradual Onset, Lasting Days, Still Present Severity Initially: Moderate Severity Currently: Moderate Pain Intensity: 9 Pain Scale Used: 0-10 Numeric Aggravating Factor(s): Standing, Ambulation Alleviating Factor(s): Rest Able to Bear Weight: Yes - Allergies/Home Medications Allergies/Adverse Reactions: Allergies Allergy/AdvReac Type Severity Reaction Status Date / Time Bupropion [From Wellbutrin] Allergy Severe seizures Verified 08/23/16 01:28 PMH/Surg Hx/FS Hx/Imm Hx Previously Healthy: No Endocrine History: Dyslipidemia Cardiovascular History: Cardiac Disease, Hypertension, Myocardial Infarction Psychological History: Depression Other History Of: Anticoagulant Therapy - Surgical History Surgical History: Yes Surgery Procedure, Year, and Place: Numerous eye surgeries prior to their removal. Bilat eye surg(PROSTHESIS CLEARED BY DR. HOWARD FOR MRI) 2010 and 2015. Cholecystectomy 2007. Tonsillectomy 1978. LLE plate 2011. CABG 2012 - Family History Known Family History: Positive: Hypertension - Social History Occupation: Disabled Lives: With Family Alcohol Use: Rare Alcohol Amount: 2-3 beers Substance Use Type: Marijuana Substance Use Comment - Amount & Last Used: This week Smoking Status (MU): Light Every Day Tobacco Smoker Type: Cigarettes Amount Used/How Often: smokes occasionally, not every day, smokes 3-4 cigarettes when he smokes. Length of Time of Smoking/Using Tobacco: doesnt know Have You Smoked in the Last Year: Yes Household Exposure Type: Cigarettes - Immunization History Most Recent Influenza Vaccination: March 2016 Most Recent Tetanus Shot: current Most Recent Pneumonia Vaccination: 2017 Review of Systems Constitutional: Negative Skin: Negative Eyes: Negative ENT: Negative Respiratory: Negative Cardiovascular: Negative Gastrointestinal: Negative Genitourinary: Negative Motor: Negative Neurovascular: Negative Musculoskeletal: Arthralgia - left knee anterior Neurological: Negative Psychological: Negative All Other Systems Reviewed And Are Negative: Yes Physical Exam Triage Information Reviewed: Yes Appearance: Well-Appearing, No Pain Distress, Well-Nourished Vital Signs: Initial Vital Signs Temp 99 F 12/04/16 13:51 Pulse 78 12/04/16 13:51 Resp 20 12/04/16 13:51 BP 125/78 12/04/16 13:51 Pulse Ox 100 12/04/16 13:51 Vital Signs Reviewed: Yes Eye Exam: Other Eyes: Positive: Other: - prosthesis ENT Exam: Normal ENT: Positive: Normal ENT inspection, Hearing grossly normal. Negative: Nasal congestion, Nasal drainage, Trismus, Muffled/hoarse voice Dental Exam: Normal Neck exam: Normal Neck: Positive: Supple, Nontender Respiratory Exam: Normal Respiratory: Positive: Chest non-tender, No respiratory distress, No accessory muscle use Cardiovascular Exam: Normal Cardiovascular: Positive: RRR, Pulses Normal, Brisk Capillary Refill Musculoskeletal Exam: Normal Musculoskeletal: Positive: Strength Intact, ROM Intact Neurological Exam: Normal Neurological: Positive: Alert, Muscle Tone Normal Psychological Exam: Normal Skin Exam: Normal Diagnostics - Radiology No standard instances Xray Interpretation: No Acute Changes Radiology Interpretation Completed By: Radiologist Lower Extremity Course/Dx - Course Course Of Treatment: pain control, follow with ortho [facility] for further discussion regarding management of chonic left leg pain including hardware removal - Differential Dx/Diagnosis Differential Diagnosis/HQI/PQRI: Cellulitis, Fracture (Closed), Gout, Infection , Sprain, Strain Provider Diagnoses: Acute on chronic left lower leg pain Discharge - Discharge Plan Condition: Stable Disposition: HOME Prescriptions: HYDROcodone/ACETAMIN 5-325 MG* [[place] 5-325 TAB*] 1 tab PO Q6H PRN #12 tab MDD 4 PRN Reason: Pain Patient Education Materials: Arthralgia (ED), RICE Therapy (ED) Referrals: [facility] [Provider Group] - 3 Days
== END 2016-12-04 16:22 | disposition home or self-care (01) ==
LOC: UCEAST 13:41
DX: M79.662 Pain in left lower leg (principal); G89.29 Other chronic pain; Z72.0 Tobacco use
CPT/HCPCS: 99212; G0463

== ENCOUNTER 2017-01-20 20:23 | Emergency (ER) | payer MEDICAID ==
[2017-01-20 20:32] VITALS: BP 123/84
[2017-01-20] MEDS ORDERED: HYDROcodone/ACETAMIN 5-325 MG* 1 TAB PO ONE (21:02)
--- NOTE | 2017-01-20 21:02 | RAD ---
INDICATION: Knee pain. Remote tibial plateau fracture. COMPARISON: None TECHNIQUE: AP, lateral, tunnel, and sunrise views were obtained. FINDINGS: There is orthopedic fixation of a tibial plateau fracture. No hardware failure is evident. The knee articulates normally. There is no joint effusion. IMPRESSION: POSTOPERATIVE CHANGE. NO ACUTE FINDINGS.
--- NOTE | 2017-01-20 21:15 | UC ---
Knee Pain HPI - HPI Summary HPI Summary: Patient presents with complaints of left knee pain, he states he has plated s/p trauma and he recently fell. He states that after the fall he had increased pain on the lateral aspect. He states the pain is worse if her presses on the area, but remains constant even without touching it. He describes the pain as sharp, stabbing pain. He denies any head or neck injury and no LOC. He states he is going to call his orthopedist for follow up tomorrow. - History of Current Complaint Chief Complaint: UCLowerExtremity Stated Complaint: KNEE INJURY Time Seen by Provider: 01/20/17 20:33 Hx Obtained From: Patient Onset/Duration: Sudden Onset, Lasting Days Severity Initially: Moderate Severity Currently: Severe Character: Sharp Aggravating Factor(s): Movement, Weight Bearing, Prolonged Standing, Stairs Alleviating Factor(s): Rest Associated Signs And Symptoms: Positive: Negative Able to Bear Weight: Yes - Allergies/Home Medications Allergies/Adverse Reactions: Allergies Allergy/AdvReac Type Severity Reaction Status Date / Time Bupropion [From Wellbutrin] Allergy Severe seizures Verified 08/23/16 01:28 PMH/Surg Hx/FS Hx/Imm Hx Previously Healthy: Yes Cardiovascular History: Cardiac Disease, Myocardial Infarction Other History Of: Anticoagulant Therapy - Surgical History Surgical History: Yes Surgery Procedure, Year, and Place: Numerous eye surgeries prior to their removal. Bilat eye surg(PROSTHESIS CLEARED BY DR. HOWARD FOR MRI) 2010 and 2015. Cholecystectomy 2007. Tonsillectomy 1978. LLE plate 2011. CABG 2012 - Family History Known Family History: Positive: Hypertension - Social History Occupation: Disabled Lives: Alone Alcohol Use: Rare Alcohol Amount: 2-3 beers Substance Use Type: Marijuana Substance Use Comment - Amount & Last Used: This week Smoking Status (MU): Light Every Day Tobacco Smoker Type: Cigarettes Amount Used/How Often: smokes occasionally, not every day, smokes 3-4 cigarettes when he smokes. Length of Time of Smoking/Using Tobacco: doesnt know Have You Smoked in the Last Year: Yes Household Exposure Type: Cigarettes - Immunization History Most Recent Influenza Vaccination: March 2016 Most Recent Tetanus Shot: current Most Recent Pneumonia Vaccination: 2017 Review of Systems Musculoskeletal: Other: - left lateral knee pain All Other Systems Reviewed And Are Negative: Yes Physical Exam Triage Information Reviewed: Yes Appearance: Well-Appearing Vital Signs: Initial Vital Signs Temp 97.7 F 01/20/17 20:26 Pulse 102 01/20/17 20:26 Resp 16 01/20/17 20:26 BP 123/84 01/20/17 20:26 Pulse Ox 99 01/20/17 20:26 Vital Signs Reviewed: Yes Eyes: Positive: Other: - blind. ENT Exam: Normal Neck exam: Normal Respiratory Exam: Normal Cardiovascular Exam: Normal Musculoskeletal: Positive: Other: - left knee;inspection no gross deformity noted. healed scars medially and laterally. Palpation;tenderness to palpation of the lateral aspect. no warmth on palpation. rom;intact with flextion to 90 degrees, extension to 0. negative anterior and posterior draw sign. Postiive valus stress test with reproducible pain. vasc;no edema, neruo;no deficits. Skin Exam: Normal Knee Pain Course/Dx - Course Course Of Treatment: Patient presents with acute knee pain following a fall, xrays were read as negative. Patient was placed in a knee immobizier, pain addressed in clinic with sharron. He will follow up with his orthopedists tomorrow for an appointment. He could not utilize crutches due to his blindness and considering the negative xray I feel trying to have his use the crutches is more dangerous that just using the immobilzer. He was given a RX for norco for pain controll. He was neruo-vasc intact and discharged home in stable condition. - Differential Dx/Diagnosis Differential Diagnosis/HQI/PQRI: Other - knee pain Provider Diagnoses: knee pain Discharge - Discharge Plan Condition: Stable Disposition: HOME Prescriptions: Hydrocodone-Acetaminophen [[place] 5-325 mg] 1 tab PO Q4H #14 tab MDD 6 Patient Education Materials: Knee Pain (ED) Referrals: Ryan Lee MD [Medical Doctor] - Isaac Gonzales MD [Primary Care Provider] -
== END 2017-01-20 21:27 | disposition home or self-care (01) ==
LOC: UCEAST 20:23
DX: M25.562 Pain in left knee (principal); I51.9 Heart disease, unspecified; I21.3 ST elevation (STEMI) myocardial infarction of unspecified site; Z79.01 Long term (current) use of anticoagulants; Z90.49 Acquired absence of other specified parts of digestive tract; F12.90 Cannabis use, unspecified, uncomplicated; F17.210 Nicotine dependence, cigarettes, uncomplicated
CPT/HCPCS: 99212; G0463

== ENCOUNTER 2017-01-27 17:45 | Emergency (ER) | payer MEDICAID ==
[2017-01-27 18:12] VITALS: BP 105/69
--- NOTE | 2017-01-27 18:20 | UC ---
Back Pain HPI - HPI Summary HPI Summary: 47 YEAR OLD MALE PRESENTS WITH COMPLAINS OF LEFT LOWER BACK PAIN. - History of Current Complaint Chief Complaint: UCBackPain Stated Complaint: LOWER BACK PAIN Time Seen by Provider: 01/27/17 18:18 Hx Obtained From: Patient Onset/Duration: Sudden Onset Timing: Constant Severity Initially: Moderate Severity Currently: Moderate Character: Sharp Aggravating: Movement, Bending Associated Signs And Symptoms: Positive: Negative - Allergies/Home Medications Allergies/Adverse Reactions: Allergies Allergy/AdvReac Type Severity Reaction Status Date / Time Bupropion [From Wellbutrin] Allergy Severe seizures Verified 01/27/17 18:12 PMH/Surg Hx/FS Hx/Imm Hx Previously Healthy: Yes Other History Of: Anticoagulant Therapy - Surgical History Surgical History: Yes Surgery Procedure, Year, and Place: Numerous eye surgeries prior to their removal. Bilat eye surg(PROSTHESIS CLEARED BY DR. HOWARD FOR MRI) 2010 and 2015. Cholecystectomy 2007. Tonsillectomy 1978. LLE plate 2011. CABG 2012 - Family History Known Family History: Positive: Hypertension - Social History Alcohol Use: Rare Alcohol Amount: 2-3 beers Substance Use Type: Marijuana Substance Use Comment - Amount & Last Used: This week Smoking Status (MU): Light Every Day Tobacco Smoker Type: Cigarettes Amount Used/How Often: smokes occasionally, not every day, smokes 3-4 cigarettes when he smokes. Length of Time of Smoking/Using Tobacco: doesnt know Have You Smoked in the Last Year: Yes Household Exposure Type: Cigarettes - Immunization History Most Recent Influenza Vaccination: March 2016 Most Recent Tetanus Shot: current Most Recent Pneumonia Vaccination: 2017 Review of Systems Constitutional: Negative Skin: Negative Eyes: Negative ENT: Negative Respiratory: Negative Cardiovascular: Negative Gastrointestinal: Negative Genitourinary: Negative Motor: Negative Neurovascular: Negative Musculoskeletal: Other: - LOWER BACK PAIN LEFT SIDE Neurological: Negative Psychological: Negative All Other Systems Reviewed And Are Negative: Yes Physical Exam Triage Information Reviewed: Yes Vital Signs: Initial Vital Signs Temp 36.6 C 01/27/17 18:08 Pulse 68 01/27/17 18:08 Resp 18 01/27/17 18:08 BP 105/69 01/27/17 18:08 Pulse Ox 99 01/27/17 18:08 Eye Exam: Normal ENT Exam: Normal Dental Exam: Normal Neck exam: Normal Neck: Positive: 1 Respiratory Exam: Normal Cardiovascular Exam: Normal Abdominal Exam: Normal Musculoskeletal: Positive: Other: - LOWER BACK PAIN LEFT SIDE Neurological Exam: Normal Psychological Exam: Normal Skin Exam: Normal Back Pain Course/Dx - Differential Dx/Diagnosis Provider Diagnoses: PIRIFORMIS SYNDROME Discharge - Discharge Plan Condition: Stable Disposition: HOME Prescriptions: Methocarbamol TAB* [Robaxin 500 MG TAB*] 500 mg PO TID PRN #30 tab PRN Reason: Spasms - Back Methylprednisolone [Medrol Dosepak 4 MG*] 4 mg PO .SEE CARIDAD INSTRUCTION #21 tab Patient Education Materials: Muscle Spasm (ED), Piriformis Syndrome (ED) Referrals: Isaac Gonzales MD [Primary Care Provider] -
== END 2017-01-27 18:30 | disposition home or self-care (01) ==
LOC: UCEAST 17:45
DX: M62.838 Other muscle spasm (principal); F17.210 Nicotine dependence, cigarettes, uncomplicated
CPT/HCPCS: 99212; G0463

== ENCOUNTER 2017-08-31 07:43 | Day surgery (SDC) | payer MEDICAID ==
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
--- NOTE | 2017-08-29 23:00 | HP ---
HISTORY AND PHYSICAL: DATE OF ADMISSION/SURGERY: 08/31/17 PROVIDER: Dr. Lee* (dictated by DELMY Weiss). HISTORY OF PRESENT ILLNESS: Mr. Gibson is a 47-year-old male. He is blind. He has had intermittent disabling pain from bursitis over the plates in his left knee for several years now. Knee was fractured years ago and was repaired with an open reduction and internal fixation. He would like to have the plates removed from his knee. PAST MEDICAL HISTORY: 1. Heart disease. 2. Hyperlipidemia. 3. 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 4. Chronic ischemic heart disease. 5. Coronary arteriosclerosis. 6. Present with painful hardware. 7. Blindness. PAST SURGICAL HISTORY: 1. Cataracts. 2. Cornea transplant. 3. Removal of eyes. 4. Gallbladder excision. 5. Tonsillectomy. 6. Repair of fracture. 7. Triple bypass open heart surgery in 2010. MEDICATIONS: 1. Metoprolol extended release 50 mg 1 by mouth every day. 2. Xarelto 20 mg 1 p.o. daily. 3. Plavix 75 mg 1 by mouth every day. 4. Sertraline 100 mg 1 by mouth every day. 5. Zolpidem 5 mg 1 by mouth at bedtime as needed. 6. Tramadol 50 mg 1 tablet every 6 hours as needed. 7. Lisinopril 2.5 mg 1 by mouth every day. 8. Buspirone b.i.d. 9. Trazodone 150 mg 1 by mouth at bedtime as needed. 10. Rosuvastatin calcium 20 mg 1 tab daily. 11. Amitriptyline 25 mg 1 tablet by mouth at bedtime. ALLERGIES: WELLBUTRIN causes seizures. SOCIAL HISTORY: The patient is a half-pack a day smoker x30 years. He is a rare drinker. He smokes marijuana 0.5 g about 3 times a week out of the pipe. He denies any other illicit drug use. REVIEW OF SYSTEMS: General: The patient denies any fevers, chills, or night sweats. No known anesthesia problems. HEENT: The patient denies any headaches , lightheadedness, or syncopal episodes. Cardiothoracic: The patient denies any chest pain, heart palpitations, or edema. Pulmonary: The patient denies any shortness of breath with exertion, chronic cough, COPD. GI: The patient denies any nausea, vomiting, diarrhea, or constipation. : The patient denies any nocturia, urinary frequency, urgency, or history of UTI. MSK: The patient admits to pain over the incisions where the plates are. The patient denies any low back pain or fractures. Neuro: The patient admits to CVA in the past. He denies any paresthesias, numbness, or seizures. Integument: The patient denies any abrasions, lesions, rashes, lumps, or open sores. PHYSICAL EXAMINATION GENERAL: The patient is alert and oriented x3 with appropriate mood and affect , appropriate dress and hygiene, non-antalgic gait. Bilateral well-coordinated upper and lower extremities. HEENT: Normocephalic and atraumatic. Hearing grossly intact. PULMONARY: Lungs are clear to auscultation bilaterally with no wheezes, rales, or rhonchi. CARDIO: Regular rate and rhythm. Normal S1 and S2. No appreciable S3 or S4. No murmurs, rubs, or gallops. MSK: Left knee: Left quadriceps atrophy. The left knee is extension of 0 degrees and flexion of 130 degrees. There is some slight tenderness in the medial and lateral joint lines. Slight tenderness posteriorly and he is more tender over the medial and lateral plates on the proximal tibia medially and laterally. There is no redness, fluctuance, or drainage. No knee effusion. MCL/LCL are stable. Juan's and posterior drawer do not add any knee pain. Thigh and calves are soft. He is neurovascularly intact. IMPRESSION: 1. Painful hardware of left knee. 2. Coronary artery disease, myocardial infarction. He has a mural thrombus and cardiac stents present. PLAN: Today, we spoke with Dr. Guido Real regarding his cardiac clearance for surgical care and discussed carefully stopping the Xarelto on 08/27/17 and the next day starting Lovenox to 100 mg subcu b.i.d. on Wednesday, Wednesday and Wednesday. The Lovenox was stopped after the evening dose on Wednesday and we will proceed with surgical care on Wednesday. The patient's Plavix was stopped on and after surgery on Wednesday we will give him Lovenox 100 mg subcu in the evening and then we will be planning to start Xarelto and Plavix on 09/01/17 in the a.m. The surgical decision to proceed with surgical care was made. The risks and complications of surgery were discussed with him today including infection and especially including that he could still has some knee pain and weakness as this has been chronic and has certainly may have to do physical therapy after surgery to strengthen the left knee. We cannot guarantee that the surgical care will end his falling. Regarding walking aids, he has a cane today and we gave him a script for forearm crutches. This can be a help after surgery as well. Surgery is planned for 08/31/17 removal of 2 plates from his proximal tibia on the left side. DELMY WEISS [id number]/[facility] #: [id number] MTDD
[~2017-08-31 07:43] MED LIST: Buffered Lidocaine 0.9% SYRIN* 5 ML/SYR SYRINGE INTRADERM ONE; Dexamethasone IV* 4 MG/ML 1 ML (4 MG) IV SLOW PU ONE; Famotidine TAB* 20 MG PO ONE; Scopolamine 1.5 mg* PATCH TRANSDERM ONE
[2017-08-31] MEDS ORDERED: Dexamethasone IV* 4 MG/ML 1 ML (4 MG) ONE ×2 (07:48→08:20)
[2017-08-31] MEDS ORDERED: Famotidine TAB* 20 MG ONE (07:48)
[2017-08-31] MEDS ORDERED: ceFAZolin 2 GM PREMIX (*) 2 GM/50 ML BAG IVPB ONE (07:48)
[2017-08-31] MEDS ORDERED: Scopolamine 1.5 mg* PATCH ONE (07:48)
[2017-08-31] MEDS ORDERED: Buffered Lidocaine 0.9% SYRIN* 5 ML/SYR SYRINGE ONE (07:49)
[2017-08-31] MEDS ORDERED: Ondansetron INJ* 2 MG/ML VIAL ONE (08:20)
[2017-08-31] MEDS ORDERED: KETAMINE HCL* 50 MG/ML 10 ML VIAL ONE (08:20)
[2017-08-31] MEDS ORDERED: fentaNYL* 50 MCG/ML 2 ML VIAL (100 MCG VIAL) ONE ×2 (08:20→10:09)
[2017-08-31] MEDS ORDERED: Lidocaine 2% PF * 5 ML VIAL ONE (08:20)
[2017-08-31] MEDS ORDERED: Propofol* 10 MG/ML 20 ML BTL IV PUSH ONE (08:20)
[2017-08-31] MEDS ORDERED: Ketorolac INJ* 30 MG/ML 1 ML VIAL ONE (08:20)
[2017-08-31] MEDS ORDERED: Midazolam* 1 MG/ML 5 ML VIAL (5 MG) ONE (08:20)
[2017-08-31] MEDS ORDERED: Bupivacaine 0.25% SDV* 30 ML ONE (09:46)
[2017-08-31] MEDS ORDERED: EPHEDrine (Pressors)* 50 MG/ML VIAL ONE (10:02)
[2017-08-31] MEDS ORDERED: HYDROmorphone INJ* 1 MG/ML CARPUJECT SYRINGE ONE (10:48)
[2017-08-31] MEDS ORDERED: Metoprolol Tartrate IV* 1 MG/ML 5 ML VIAL ONE (10:50)
[2017-08-31] MEDS ORDERED: Ondansetron INJ* 2 MG/ML VIAL IV PRN (11:18)
[2017-08-31] MEDS ORDERED: Naloxone* 0.4 MG/ML 1 ML VIAL IV PRN (11:18)
[2017-08-31] MEDS ORDERED: fentaNYL* 50 MCG/ML 2 ML VIAL (100 MCG VIAL) IV PRN (11:18)
[2017-08-31] MEDS ORDERED: DiMENhydriNATE IV* 50 MG/ML VIAL IV PUSH PRN (11:18)
[2017-08-31] MEDS ORDERED: oxyCODONE/Acetamin 5/325 MG* TAB ONE ×2 (12:20→13:19)
[2017-08-31] MEDS: oxyCODONE/Acetamin 5/325 MG* TAB PO PRN ×2 (12:20→13:19)
[2017-08-31 14:02] VITALS: BP 135/92
--- NOTE | 2017-08-31 17:31 | OP ---
OPERATIVE REPORT: DATE OF OPERATION: 08/31/17 DATE OF : 74 SURGICAL CARE: Left knee. SURGEON: Ryan Lee MD ICE BAG ASSEMBLER: DELMY Hand, first coat operator. ANESTHESIOLOGIST: Jaiden Coon MD ANESTHESIA: General. PRE-OP DIAGNOSIS: Painful hardware, left knee medial and lateral proximal tibia. POST-OP DIAGNOSIS: Painful hardware, left knee medial and lateral proximal tibia. OPERATIVE PROCEDURE: Removal of plate and multiple screws from the lateral proximal tibia and remova l of plate and screws from the medial proximal tibia. INDICATIONS: Painful plates, left knee. The patient was checked preoperatively by Dr. Real and hi s Xarelto and his Plavix were both stopped and he was bridged with baby aspirin and Lovenox 100 mg vincent bcu b.i.d. until last evening. COMPLICATIONS: There were no complications. DRAINS: There were no drains. TOURNIQUET: Tourniquet control was utilized on the left lower extremity. CONDITION: Stable to the recovery room. DESCRIPTION OF PROCEDURE: The patient was brought to the operating room and placed on the operating table in the supine position. Following the administration of the anesthetic, the left proximal thig h was wrapped with a tourniquet. The left leg was given a preliminary chlorhexidine prep over the an terior knee and proximal leg and then a formal ChloraPrep from the tourniquet to the foot. After pre pping, draping, and carefully sealing off, we did our universal protocol time-out confirming Arthur War ner and plan for removal of plates, left knee. His leg, ankle, and foot portion were sealed off with an impermeable drape with an [place] drape wrapped around the calf and knee at the surgical site. We all agreed to proceed after the time-out and the leg was exsanguinated. The tourniquet elevated to 2 75. The curving lateral incision was reused from his original surgery and the skin and subcu divided down to the tibia. The plate was at the flare and then going down across the metaphysis to the proxi mal diaphysis. The plate was carefully exposed, 4 locking screws were removed from the top and then there were 2 locking screws more distally, 1 obliquely across the metaphysis going towards the medial joint line and the other going transversely. After all the screws were out, the plate was easily re moved with a small osteotome. The plate bed was curetted with curette to remove any loose granulatio ns and then irrigated. The deep fascia that had been open longitudinally over the plate was closed w ith interrupted 0 Vicryl sutures in figure-of-8 fashion. The superficial subcu closed with interrupt ed 4-0 Vicryls and the skin closed with julio. The skin and subcu were infiltrated with Marcaine 0 .25% without epinephrine on the lateral side. On the medial side, the skin incision also was previou sly used skin incision. It was open longitudinally. The soft tissues were divided down to the tibia and then subperiosteally to the plate, which was towards the posterior side of the medial tibial met aphysis. The plate was exposed. The 2 screws were removed. The plate was then pried up with osteot ome and carefully removed. The plate bed was curetted for any loose granulation tissues and these we re removed and then irrigated. The pes was traversed somewhat to get to the plate. The pes was repa ired with interrupted [id number] 0 Vicryl sutures, 3 of these were utilized. The superficial vincent bcu closed with 4-0 Vicryl and the skin closed with julio. Skin and subcu also infiltrated with Ma rcaine 0.25% without epinephrine. The skin was closed with julio and then washed and dried and cov ered with Betadine-soaked release followed by sterile gauze, sterile Webril, cryotherapy cuff, ABD pa d, and further Webril, and then a 6-inch Nayan bandage loosely applied. The patient was returned to [facility] recovery room in stable and satisfactory condition having tolerated the procedure very well. In [facility] recovery room, he was doing nicely, able to do a straight leg raise on the left and able to rotate the left hip internally and externally and extend the hip, move his left ankle actively up, down and move his toes actively up and down. Procedure well tolerated. [id number]/[facility] #: [id number]
[2017-09-03] MEDS ORDERED: Scopolamine PATCH Remove* 1 NOTE MISC PATCH OFF ONE (06:00)
== END 2017-08-31 14:31 | disposition home or self-care (01) ==
LOC: OR 07:43
PROVIDERS: ATTEND Orthopaedic Surgery
DX: T84.84XA Pain due to internal orthopedic prosthetic devices, implants and grafts, initial encounter (principal); Y83.1 Surgical operation with implant of artificial internal device as the cause of abnormal reaction of the patient, or of later complication, without mention of misadventure at the time of the procedure; Z95.1 Presence of aortocoronary bypass graft; Z79.01 Long term (current) use of anticoagulants; I25.10 Atherosclerotic heart disease of native coronary artery without angina pectoris; E78.5 Hyperlipidemia, unspecified; I69.328 Other speech and language deficits following cerebral infarction
CPT/HCPCS: 88300; A9270-GY; J0690; J1100; J1170; J1885; J2250; J2405; J2704; J3010; J3490

== ENCOUNTER 2021-04-02 15:41 | Inpatient (IN) ==
[2021-04-02 16:00] LABS: ABS Lymphocytes 2.1 10^3/ul (1.0-4.8); ABS Monocytes 0.8 10^3/ul (0-0.8); ABS Neutrophils 7.5 10^3/ul (1.5-7.7); Eosinophil % 0.4 %; Hematocrit 46 % (42-52); Hemoglobin 15.9 g/dL (14.0-18.0); Lymphocyte % 19.7 %; Mean Corpuscular HGB Conc 34 g/dL (31-36); Mean Corpuscular Hemoglobin 32 pg (27-31); Mean Corpuscular Volume 93 fL (80-94); Mean Platelet Volume 7.9 fL (7.4-10.4); Platelet Count 267 10^3/uL (150-450); Red Blood Count 4.96 10^6 /uL (4.18-5.48); Red Cell Distribution Width 14 % (10-15); White Blood Count 10.5 10^3/uL (3.5-10.8)
[2021-04-02 16:13] LABS: ALT 25 U/L (7-52); AST 18 U/L (13-39); Albumin 4.3 g/dL (3.2-5.2); Albumin/Globulin Ratio 1.5 (1-3); Alkaline Phosphatase 121 U/L (35-149); Anion Gap 5 mmol/L (2-11); Blood Urea Nitrogen 14 mg/dL (6-24); C Reactive Protein 3.51 mg/L (<8.01); CO2 Carbon Dioxide 31 mmol/L (22-32); Calcium 9.5 mg/dL (8.6-10.3); Chloride 100 mmol/L (101-111); Globulin 2.9 g/dL (2-4); Glucose 100 mg/dL (70-100); Potassium 4.1 mmol/L (3.5-5.0); Sodium 136 mmol/L (135-145); Total Protein 7.2 g/dL (6.4-8.9); Troponin I 0.01 ng/mL (<0.03); eGFR CKD-EPI 85.1 (>60)
[2021-04-02 16:32] LABS: Alcohol, S < 13 mg/dL (<13); Salicylate < 2.50 mg/dL (<30)
[2021-04-02] MEDS ORDERED: Morphine 4 MG/ML VIAL (1 ml) IV ONE (16:35)
[2021-04-02 16:37] LABS: Acetaminophen < 15 mcg/mL
[2021-04-02] MEDS ORDERED: Magnesium Hydroxide LIQ 30 ML UDC PO PRN (18:03)
[2021-04-02 18:23] LABS: Urine Appearance Clear; Urine Bilirubin Negative (Negative); Urine Blood 2+ (Negative); Urine Color Yellow; Urine Glucose Negative (Negative); Urine Ketones Negative (Negative); Urine Nitrite Negative (Negative); Urine Protein Negative (Negative); Urine Specific Gravity 1.005 (1.002-1.030); Urine Urobilinogen Negative (Negative)
[2021-04-02 18:30] LABS: Urine Amorphous Crystals Present (Absent); Urine Bacteria Absent (Absent); Urine Red Blood Cell Trace(0-2/hpf) (Absent); Urine White Blood Cell Trace(0-5/hpf) (Absent)
[2021-04-02 18:39] LABS: Urine Benzodiazepine Screen None Detected (None Detect); Urine Cannabinoids Screen None Detected (None Detect); Urine Opiates Screen Presumptive Positive (None Detect)
[2021-04-02] MEDS ORDERED: Iohexol 350 (CONTRAST) 500 ML MDV IV ONE (19:11)
[2021-04-02] MEDS: Lidocaine PATCH 5% PATCH TRANSDERM SCH (22:00)
[2021-04-03 06:08] LABS: Hematocrit 48 % (42-52); Hemoglobin 16.2 g/dL (14.0-18.0); Mean Corpuscular HGB Conc 34 g/dL (31-36); Mean Corpuscular Hemoglobin 32 pg (27-31); Mean Corpuscular Volume 94 fL (80-94); Mean Platelet Volume 8.3 fL (7.4-10.4); Platelet Count 225 10^3/uL (150-450); Red Blood Count 5.08 10^6 /uL (4.18-5.48); Red Cell Distribution Width 14 % (10-15); White Blood Count 8.8 10^3/uL (3.5-10.8)
[2021-04-03 06:35] LABS: HDL Cholesterol 25.2 mg/dL; Potassium 3.9 mmol/L (3.5-5.0); eGFR CKD-EPI 106.5 (>60)
[2021-04-03 06:49] LABS: TSH Ultra Thyroid Stim Horm 2.24 mcIU/mL (0.34-5.60)
[2021-04-03] MEDS: Aspirin EC 81 mg TAB.EC (enteric coated) PO SCH (08:02)
[2021-04-03] MEDS: Lidocaine PATCH 5% PATCH TRANSDERM SCH (08:02)
[2021-04-03] MEDS: Lidocaine Patch REMOVE NOTE PATCH OFF SCH ×2 (08:05→21:45)
[2021-04-03] MEDS ORDERED: Nitroglycerin 0.4 mg/hr PATCH (10 mg) TRANSDERM SCH (22:00)
[2021-04-04] MEDS ORDERED: Nitro Patch Removal Reminder PATCH OFF SCH (06:00)
[2021-04-04] MEDS: Lidocaine PATCH 5% PATCH TRANSDERM SCH (08:13)
[2021-04-04] MEDS: Aspirin EC 81 mg TAB.EC (enteric coated) PO SCH (08:14)
[2021-04-04] MEDS ORDERED: Flu vaccine *QUAD* 2021-22* 0.5 ML SYRINGE IM ONE (09:00)
[2021-04-04] MEDS ORDERED: Pneumococcal Vac 23-Polyvalent IM ONE (09:00)
[2021-04-04] MEDS: Erythromycin OPTH OINT APPLIC OINT RIGHT EYE SCH ×2 (11:44→21:04)
[2021-04-04] MEDS ORDERED: Regadenoson 0.4 MG/5 ML SYRINGE ONE (12:56)
[2021-04-04] MEDS ORDERED: Aminophylline 25 MG/ML VIAL ONE (12:56)
[2021-04-04] MEDS: Isosorbide Mononit ER 60mg TAB PO SCH (20:19)
[2021-04-04] MEDS: Lidocaine Patch REMOVE NOTE PATCH OFF SCH (21:05)
[2021-04-05] MEDS: Aspirin EC 81 mg TAB.EC (enteric coated) PO SCH (09:07)
[2021-04-05] MEDS: Isosorbide Mononit ER 60mg TAB PO SCH (09:07)
[2021-04-05] MEDS: Lidocaine PATCH 5% PATCH TRANSDERM SCH (09:08)
[2021-04-05] MEDS: Erythromycin OPTH OINT APPLIC OINT RIGHT EYE SCH ×2 (09:18→20:15)
[2021-04-05] MEDS: Lidocaine Patch REMOVE NOTE PATCH OFF SCH (19:27)
[2021-04-06] MEDS: Lidocaine PATCH 5% PATCH TRANSDERM SCH (10:31)
[2021-04-06] MEDS: Erythromycin OPTH OINT APPLIC OINT RIGHT EYE SCH ×2 (10:31→21:21)
[2021-04-06] MEDS: Isosorbide Mononit ER 60mg TAB PO SCH (11:53)
[2021-04-06] MEDS: Aspirin EC 81 mg TAB.EC (enteric coated) PO SCH (11:53)
[2021-04-06] MEDS: Lidocaine Patch REMOVE NOTE PATCH OFF SCH (21:29)
[2021-04-07] MEDS: Aspirin EC 81 mg TAB.EC (enteric coated) PO SCH (10:16)
[2021-04-07] MEDS: Isosorbide Mononit ER 60mg TAB PO SCH (10:16)
[2021-04-07] MEDS: Lidocaine PATCH 5% PATCH TRANSDERM SCH (10:21)
[2021-04-07] MEDS: Erythromycin OPTH OINT APPLIC OINT RIGHT EYE SCH ×2 (14:26→21:33)
[2021-04-07] MEDS: Lidocaine Patch REMOVE NOTE PATCH OFF SCH (21:40)
[2021-04-08 07:44] VITALS: BP 103/63
[2021-04-08] MEDS: Aspirin EC 81 mg TAB.EC (enteric coated) PO SCH (11:31)
[2021-04-08] MEDS: Lidocaine PATCH 5% PATCH TRANSDERM SCH (11:31)
[2021-04-08] MEDS: Isosorbide Mononit ER 60mg TAB PO SCH (11:32)
[2021-04-08] MEDS: Erythromycin OPTH OINT APPLIC OINT RIGHT EYE SCH (11:32)
== END 2021-04-08 14:45 | disposition home or self-care (01) | DRG 755 ==
LOC: ED 15:41 → EDHOLD 15:41 → OBSVTOIN 18:25 → INTOOBSV 18:25 → SUATTDRO 18:25 → MEDTELE 20:49 → BSU 04-05 10:18
PROVIDERS: ADMIT Internal Medicine; ATTEND Psychiatry & Neurology Psychiatry

== ENCOUNTER 2021-06-05 15:37 | Inpatient (IN) ==
[2021-06-05 16:45] LABS: ABS Eosinophils 0.1 10^3/ul (0-0.6); ABS Monocytes 0.9 10^3/ul (0-0.8); ABS Neutrophils 7.1 10^3/ul (1.5-7.7); Eosinophil % 0.8 %; Hematocrit 51 % (42-52); Hemoglobin 17.3 g/dL (14.0-18.0); Lymphocyte % 20.1 %; Mean Corpuscular HGB Conc 34 g/dL (31-36); Mean Corpuscular Hemoglobin 31 pg (27-31); Mean Corpuscular Volume 92 fL (80-94); Mean Platelet Volume 8.1 fL (7.4-10.4); Nucleated Red Blood Cells % 0.1; Platelet Count 253 10^3/uL (150-450); Red Blood Count 5.51 10^6 /uL (4.18-5.48); Red Cell Distribution Width 14 % (10-15); White Blood Count 10.2 10^3/uL (3.5-10.8)
[2021-06-05 17:02] LABS: ALT 23 U/L (7-52); AST 20 U/L (13-39); Albumin 4.4 g/dL (3.2-5.2); Albumin/Globulin Ratio 1.3 (1-3); Alkaline Phosphatase 115 U/L (35-149); Anion Gap 6 mmol/L (2-11); Blood Urea Nitrogen 13 mg/dL (6-24); CO2 Carbon Dioxide 32 mmol/L (22-32); Calcium 9.7 mg/dL (8.6-10.3); Chloride 100 mmol/L (101-111); Globulin 3.3 g/dL (2-4); Glucose 98 mg/dL (70-100); Potassium 4.3 mmol/L (3.5-5.0); Sodium 138 mmol/L (135-145); Total Protein 7.7 g/dL (6.4-8.9); eGFR CKD-EPI 79.7 (>60)
[2021-06-05 17:04] LABS: Urine Appearance Clear; Urine Bilirubin Negative (Negative); Urine Blood 1+ (Negative); Urine Color Yellow; Urine Glucose Negative (Negative); Urine Ketones Negative (Negative); Urine Nitrite Negative (Negative); Urine Protein Negative (Negative); Urine Specific Gravity 1.013 (1.002-1.030); Urine Urobilinogen Negative (Negative)
[2021-06-05 17:08] LABS: Acetaminophen < 15 mcg/mL; Alcohol, S < 13 mg/dL (<13); Salicylate < 2.50 mg/dL (<30)
[2021-06-05 17:23] LABS: TSH Ultra Thyroid Stim Horm 1.79 mcIU/mL (0.34-5.60)
[2021-06-05 17:43] LABS: Urine Benzodiazepine Screen None Detected (None Detect); Urine Cannabinoids Screen None Detected (None Detect); Urine Opiates Screen None Detected (None Detect)
[2021-06-05 17:46] LABS: Urine Bacteria Absent (Absent); Urine Red Blood Cell 1+(3-5/hpf) (Absent); Urine White Blood Cell 1+(6-10/hpf) (Absent)
[2021-06-06] MEDS ORDERED: Al Hydrox/Mg Hydrox/Simet LIQ 30 ML UDC PO PRN (06:22)
[2021-06-06] MEDS ORDERED: Nicotine GUM 2MG FRUIT FLAVOR PO PRN (07:00)
[2021-06-06] MEDS ORDERED: Vitamin THERAPEUTIC TAB PO SCH (09:00)
[2021-06-06 10:30] VITALS: BP 123/74
== END 2021-06-06 10:00 | disposition home or self-care (01) | DRG 755 ==
LOC: ED 15:37 → BSU 06-06 08:45
PROVIDERS: ADMIT Psychiatry & Neurology Psychiatry; ATTEND Psychiatry & Neurology Psychiatry

== ENCOUNTER 2022-03-23 16:14 | Inpatient (IN) ==
[2022-03-23] MEDS ORDERED: nitroGLYCERIN DRIP 25,000 MCG/250 ML BTL ONE (16:19)
[2022-03-23] MEDS ORDERED: Heparin 2 UNITS/ML 1000 mls 2,000 ML IV ONE (16:19)
[2022-03-23] MEDS ORDERED: niCARdipine 0.1MG/ML IVPREMIX 20 MG/200 ML BAG IV ONE (16:19)
[2022-03-23] MEDS ORDERED: Heparin 1,000 UNIT/ML 10 ml (10,000 UNITS) CATHLAB/DIALYSIS ONE (16:19)
[2022-03-23] MEDS ORDERED: Iohexol 350 (CONTRAST) 100 ML PAK IV ONE (16:20)
[2022-03-23] MEDS ORDERED: Lidocaine 1% MPF 5 ML VIAL ONE (16:20)
[2022-03-23] MEDS ORDERED: fentaNYL 100 mcg/2 ml 50 MCG/ML VIAL ONE (16:27)
[2022-03-23] MEDS ORDERED: Midazolam 5 mg/5 ml VIAL 1 mg/ml 5 ml VIAL (5 mg) ONE (16:27)
[2022-03-23 16:41] LABS: Hematocrit 48 % (42-52); Hemoglobin 15.7 g/dL (14.0-18.0); Mean Corpuscular HGB Conc 33 g/dL (31-36); Mean Corpuscular Hemoglobin 30 pg (27-31); Mean Corpuscular Volume 90 fL (80-94); Platelet Count 284 10^3/uL (150-450); Red Blood Count 5.27 10^6 /uL (4.18-5.48); Red Cell Distribution Width 15 % (10-15); White Blood Count 12.6 10^3/uL (3.5-10.8)
[2022-03-23 16:44] LABS: Activated Partial Thrombo Time 31.6 seconds (26.0-38.0); INR 1.02 (0.89-1.11)
[2022-03-23] MEDS ORDERED: NS 0.9% 500 ml BAG 500 ML IV ONE ×2 (16:48→18:38)
[2022-03-23 17:45] LABS: Albumin 4.1 g/dL (3.2-5.2); Albumin/Globulin Ratio 1.5 (1-3); Calcium 9.2 mg/dL (8.6-10.3); Globulin 2.8 g/dL (2-4); Total Bilirubin 0.5 mg/dL (0.2-1.0); Total Protein 6.9 g/dL (6.4-8.9); eGFR CKD-EPI 95.1 (>60)
[2022-03-23 17:46] LABS: Potassium 4.4 mmol/L (3.5-5.0)
[2022-03-23] MEDS ORDERED: fentaNYL 100 mcg/2 ml 50 MCG/ML VIAL IV SLOW PU PRN (18:39)
[2022-03-23 19:39] LABS: High Sensitivity Troponin 1 Hr 5 pg/mL (<20)
[2022-03-23] MEDS ORDERED: Heparin DRIP 25,000 UNITS BAG 25,000 UNITS/500 ML BAG IV SCH (19:45)
[2022-03-23] MEDS ORDERED: Iohexol 350 (CONTRAST) 500 ML MDV IV ONE (19:47)
[2022-03-23] MEDS ORDERED: Heparin 5000 UNITS/ML 1 mL VIAL IV SCH (20:00)
[2022-03-23] MEDS ORDERED: nitroGLYCERIN DRIP 25,000 MCG/250 ML BTL IV SCH (23:00)
[2022-03-23] MEDS ORDERED: Morphine 2 MG/ML SYRINGE IV PRN (23:00)
[2022-03-24 04:34] LABS: ABS Eosinophils 0.1 10^3/ul (0-0.6); ABS Lymphocytes 2.6 10^3/ul (1.0-4.8); ABS Monocytes 0.6 10^3/ul (0-0.8); ABS Neutrophils 2.8 10^3/ul (1.5-7.7); Eosinophil % 1.3 %; Hematocrit 30 % (42-52); Hemoglobin 9.8 g/dL (14.0-18.0); Lymphocyte % 42.2 %; Mean Corpuscular HGB Conc 33 g/dL (31-36); Mean Corpuscular Hemoglobin 30 pg (27-31); Mean Corpuscular Volume 92 fL (80-94); Mean Platelet Volume 7.8 fL (7.4-10.4); Nucleated Red Blood Cells % 0.1; Platelet Count 178 10^3/uL (150-450); Red Blood Count 3.24 10^6 /uL (4.18-5.48); Red Cell Distribution Width 15 % (10-15); White Blood Count 6.1 10^3/uL (3.5-10.8)
[2022-03-24 05:04] LABS: High Sensitivity Troponin 3 Hr 6 pg/mL (<20)
[2022-03-24 05:29] LABS: Calcium 8.1 mg/dL (8.6-10.3); Potassium 3.7 mmol/L (3.5-5.0); eGFR CKD-EPI 93.9 (>60)
[2022-03-24] MEDS ORDERED: Potassium Chlor 20 meq TAB.ER PO ONE (05:39)
[2022-03-24] MEDS ORDERED: Aspirin EC 81 mg TAB.EC (enteric coated) PO SCH (09:00)
[2022-03-24] MEDS: KCL 10 MEQ/50 ML IVPREMIX 10 MEQ/50 ML BAG IV SCH ×3 (09:23→14:15)
[2022-03-24] MEDS ORDERED: Pantoprazole VIAL 40 MG VIAL IV ONE (13:10)
[2022-03-24 14:02] LABS: ABS Lymphocytes 2.1 10^3/ul (1.0-4.8); ABS Monocytes 0.7 10^3/ul (0-0.8); ABS Neutrophils 7.3 10^3/ul (1.5-7.7); Eosinophil % 0.4 %; Hematocrit 41 % (42-52); Hemoglobin 13.7 g/dL (14.0-18.0); Lymphocyte % 20.6 %; Mean Corpuscular HGB Conc 34 g/dL (31-36); Mean Corpuscular Hemoglobin 30 pg (27-31); Mean Corpuscular Volume 90 fL (80-94); Mean Platelet Volume 8.1 fL (7.4-10.4); Platelet Count 239 10^3/uL (150-450); Red Blood Count 4.54 10^6 /uL (4.18-5.48); Red Cell Distribution Width 15 % (10-15); White Blood Count 10.1 10^3/uL (3.5-10.8)
[2022-03-24] MEDS ORDERED: KCL 10 MEQ/50 ML IVPREMIX 10 MEQ/50 ML BAG ONE (14:14)
[2022-03-24] MEDS: CMCS: Ranolazine 500 mg TAB ER (NF) PO SCH (21:34)
[2022-03-25 06:02] LABS: ABS Basophils 0.1 10^3/ul (0-0.2); ABS Eosinophils 0.1 10^3/ul (0-0.6); ABS Lymphocytes 2.3 10^3/ul (1.0-4.8); ABS Monocytes 0.8 10^3/ul (0-0.8); ABS Neutrophils 5.5 10^3/ul (1.5-7.7); Eosinophil % 1.1 %; Hematocrit 40 % (42-52); Hemoglobin 13.8 g/dL (14.0-18.0); Lymphocyte % 26.7 %; Mean Corpuscular HGB Conc 34 g/dL (31-36); Mean Corpuscular Hemoglobin 31 pg (27-31); Mean Corpuscular Volume 90 fL (80-94); Platelet Count 244 10^3/uL (150-450); Red Blood Count 4.49 10^6 /uL (4.18-5.48); Red Cell Distribution Width 15 % (10-15); White Blood Count 8.7 10^3/uL (3.5-10.8)
[2022-03-25 06:37] LABS: Potassium 3.8 mmol/L (3.5-5.0)
[2022-03-25] MEDS ORDERED: Potassium Chlor 20 meq TAB.ER PO ONE (06:55)
[2022-03-25] MEDS: CMCS: Ranolazine 500 mg TAB ER (NF) PO SCH (09:18)
[2022-03-25 09:42] VITALS: BP 126/79
[2022-03-25] MEDS ORDERED: Influenza vaccine *QUAD* *2022-23* 0.5 ML SYRINGE IM ONE (12:25)
== END 2022-03-25 12:45 | disposition home or self-care (01) | DRG 198 ==
LOC: ED 16:14 → EDHOLD 19:11 → ICU 22:12
PROVIDERS: ADMIT Internal Medicine; ATTEND Internal Medicine